=== PATIENT | female | born 1960 | race Caucasian/White ===

== ENCOUNTER 2018-12-17 10:05 | Emergency (ER) | payer BC, SELFPAY ==
[2018-12-17 10:22] VITALS: BP 123/58; PULSE 66; RESP 18; TEMP 36.7; O2SAT 100
--- NOTE | 2018-12-17 10:48 | W.ED.GENAD ---
Discharge Plan Disposition Patient Disposition: HOME Condition: Improving Discharge Details Chief Complaint: RespSymp Clinical Impression: COPD exacerbation Primary Care Provider: Jocelyne Gandara ED Provider: Jose Martin Nelson Home Meds and New Rx's Prescriptions: New doxycycline hyclate 100 mg capsule 100 mg PO BID 10 Days Qty: 20 RF: 0 Continued paroxetine HCl 20 MG tablet 20 mg PO DAILY RF: 0 Discharge Instructions Instructions: COPD (Chronic Obstructive Pulmonary Disease) (ED) Additional Instructions: Avoid alcohol while taking doxycycline. Continue your regular medication. May use the provided albuterol inhaler 1 to 2 puffs every 4 hours as needed for wheeze or cough. Return or see regular doctor if you feel you need to use the inhaler more than every 4 hours. Follow-up with regular doctor if not improving in 5 to 7 days time. Medical Decision Making 58-year-old female presents from home with weeks of persistent cough, wheeze, noting that she has COPD and has run out of her rescue inhaler. She is well-appearing with normal vital signs, normal oxygenation. Given DuoNeb updraft, referred for chest x-ray. Influenza and rapid strep test negative. Chest x-ray without focal infiltrate. Patient improving with inhaled DuoNeb. Will order her an albuterol inhaler with spacer for home use. We will place her on a course of doxycycline for coverage of atypical microorganisms. She has not tolerated burst of prednisone in the past and therefore will withhold systemic steroids at this time. She understands homecare, as well as indications for return and follow-up. She stable and improved at this time. HPI General Mode of arrival: ambulatory. Date/Time Provider Initiated Documentation: 12/17/18 10:26. Limitations to Documentation: no limitations. Information obtained by: patient. History of Present Illness 58 year old F presents to the emergency department with the chief complaint of 2 to 3 weeks of persistent cough, described as moderate, Quality is described as dull, and is localized to the chest. Patient reports no radiation. Patient started experiencing this week(s) and it has been constant. No relieving factors improve symptom(s), No exacerbating factors reported . Patient notes cough and shortness of breath; denies chest pain and fever/chills. Patient did receive the following treatments prior to arrival, none Related Data Home Medications Medication Instructions Recorded Confirmed paroxetine HCl 20 mg PO DAILY tab-cap 05/21/14 12/17/18 doxycycline hyclate 100 mg PO BID 10 Days #20 cap 12/17/18 Previous Rx's Medication Instructions Recorded doxycycline hyclate 100 mg PO BID 10 Days #20 cap 12/17/18 Allergies Allergy/AdvReac Type Severity Reaction Status Date / Time codeine AdvReac NAUSEA/VOMI Unverified 12/17/18 10:25 TING General Stated Complaint: RespSymp UTE: 3 Review of Systems Review of Systems Narrative: Has run out of inhaler. Fever at home. No chest pain. Persistent cough. Positive sick contacts with both the public and her granddaughter. 6 systems reviewed and otherwise negative [facility] Medical History Depressed Gastric ulcer Surgical History Colonoscopy - IV Sedation EGD - IV Sedation Ligation of fallopian tube Family History Father Personal history of malignant neoplasm Lung Cancer Grandmother Personal history of malignant neoplasm Breast cancer Maternal Aunt Personal history of malignant neoplasm Breast Cancer Other Heart disease Prostate cancer Social History Smoking/Tobacco Use Status: Current every day Alcohol Intake: former Drug use: Never Do you feel safe at home: Yes Do you feel safe in your relationship?: Yes Exam Narrative Exam Narrative: GEN: awake, alert, oriented 3. Pleasant, well groomed, interactive. HEAD: Normocephalic, atraumatic ENT: Mucous membranes moist, oropharynx unremarkable, External ear exam unremarkable EYES: PERRL, EOMI NECK: Full ROM, no OZ, no menigismus CHEST/RESP: Nontender, cough noted, discrete end expiratory wheeze when coughing, otherwise clear CARDIOVASCULAR: RRR, no murmur, rub sivakumar. 2+ Rad pulse bilateral ABDOMEN: Soft, nontender, no mass. +Bowel sounds EXT: Full ROM, no edema, no rash Neuro: Grossly normal neurologic exam, conversant, interactive. Psych: Speech fluent, thoughts congruent, affect normal Course Vital Signs Vital signs: Vital Signs Temperature 36.7 C 12/17/18 10:22 Pulse 66 12/17/18 10:22 Respiratory Rate 18 12/17/18 10:22 Blood Pressure 123/58 L 12/17/18 10:22 Pulse Oximetry 100 12/17/18 10:22 Temperature 36.7 C 12/17/18 10:22 Temperature Source Skin 12/17/18 10:22 Pulse 66 12/17/18 10:22 Respiratory Rate 18 12/17/18 10:22 Respiratory Effort Non-Labored 12/17/18 10:25 Respiratory Depth Normal 12/17/18 10:25 Blood Pressure 123/58 L 12/17/18 10:22 Blood Pressure Position Supine 12/17/18 10:22 Pulse Oximetry 100 12/17/18 10:22 Oxygen Delivery Method Room Air 12/17/18 10:22 Oxygen Flow Rate 0 12/17/18 10:22 Lab/Test Results Lab/Test Results: 12/17/18 10:47 Tonsil - Not Specified Streptococcus Screen (AYDIN) - Pending 12/17/18 10:32 Nasopharynx Influenza Types A,B Antigen - Pending POC Strep Test-SAMMY(Rapid) Start: 12/17/18 10:46 Freq: .Rapid Strep Test Status: Active Protocol: Document 12/17/18 10:48 MJ (Rec: 12/17/18 10:48 MJ [id number]) Strep test-SAMMY(Rapid)-POC POC-Strep test-SAMMY (Rapid) Negative POC-Strep test-SAMMY (Rapid) Negative
--- NOTE | 2018-12-17 11:29 | DI.RAD_ITS ---
EXAM: XR CHEST 2V PA LATERAL INDICATION: cough, COPD COMPARISON: CHEST 2 VIEWS PA,LAT from 08/10/2015 TECHNIQUE: 2D digital imaging was performed. FINDINGS: The heart size is normal. The lungs are well inflated and clear. No infiltrate, effusion or pulmon karine edema is seen. Degenerative changes are seen in the mid thoracic spine. IMPRESSION: No acute abnormality.
[2018-12-17] MEDS: Albuterol HFA 8 GM 60 PUFF INH IH (11:36)
== END 2018-12-17 11:34 | disposition home or self-care (01) ==
PROVIDERS: Emergency Provider Emergency Medicine; PCP Family Medicine
DX: J44.1 Chronic obstructive pulmonary disease with (acute) exacerbation (principal); F17.210 Nicotine dependence, cigarettes, uncomplicated
CPT/HCPCS: 87449; 87880; 94640; 99284; 71046; 87081

== ENCOUNTER 2019-07-07 01:49 | Outpatient (CLI) | payer BC, SELFPAY ==
--- NOTE | 2019-07-07 06:15 | DI.NM_ITS ---
APPROVED REPORT Exam: Exercise Treadmill Patient Location: Out-Patient Room/Bed: Stress Nurse: Mckenzie Steele RN BMI: 23.04 Baseline Rhythm: Sinus Bradycardia Indications: SOB. Chest tightness. Medical History Medical History: Depression, Smoking Allergies: Codeine Cardiac Risk Factors: FHX of CAD, Smoking, COPD Pretest Chest Pain Characteristics: Exertional Chest pain Exercise History: Physically active Lung Sounds: Clear to auscultation Heart Sounds: Bradycardia Stress Test Details Test: Exercise stress testing was performed using a Rajiv protocol. Nuclear Acquisition: Rest Tc-99m/Stress Tc-99m 1 day Rest Isotope: Tc-99m Sestamibi. Dose: 10.6 Date: 07/07/2019 Injection Time: 0845 Stress Isotope: Tc-99m Sestamibi. Dose: 33.4 Date: 07/07/2019 Injection Time: 1010 HR Resting HR Supine: 50 bpm Max Heart Rate (APMHR): 161 bpm Resting HR Standin bpm Target HR (85% APMHR): 136 bpm Max HR Achieved: 156 bpm % of APMHR: 96 Recovery HR: 56 bpm HR response to stress: Normal HR response to stress BP Resting BP Supine: 118/70/ mmHg Resting BP Standin/68 mmHg Max BP: 138/62 mmHg Recovery BP: 122/60 mmHg BP response to stress: Normal blood pressure response to stress. ECG Resting ECG: Sinus Bradycardia Stress ECG: Sinus Tachycardia ST Change: Horizontal ST depression 1 mm II,III, AVF V6 Maximum ST Deviation: 1 mm Arrhythmia: None Recovery ECG: Sinus Bradycardia Recovery ST Change: No significant ST segment changes Recovery Arrhythmia: None Comment: Sts normalized immediately in recovery Clinical Reason for Termination: Dyspnea, Fatigue Stress Symptoms: General Fatigue Exercise duration: 8 min06 sec Highest Stage Reached: Stage 3: 3.4 mph at 14% grade. Exercise capacity: 10.16 METs Functional Capacity: Above average capacity Stress ECG Conclusion 1. Patient exercised on the Rajiv protocol and completed a workload of 10 METS. She did not experien ce symptoms suggestive of angina 2. Normal heart rate and blood pressure response to exercise. Patient achieved 96% of predicted hear t rate for age 3. Electrocardiographically consistent with myocardial ischemia with [address] depression in leads II, III, aVF and V6, which resolved immediately in recovery 4. There were no significant dysrhythmias Stress Test Summary STAGE Time (mins) Speed (mph) Grade (%) HR BP SYMPTOMS METS Supine 50 118/70 Standing 49 120/68 1 3 1.7 10 92 124/62 4.6 2 6 2.5 12 128 128/60 7 3 9 3.4 14 154 10.2 1 min recovery 119 138/62 3 min recovery 69 128/64 6 min recovery 56 122/60 MPI Conclusion Normal myocardial perfusion at rest and with exercise. There is no evidence of myocardial ischemia o r prior infarction. Calculated ejection fraction was 51% Radiologist Interpretation Radiologist agrees with Malt Roaster's Interpretation. Radiologist Interpretation by: Luciana Brown MD Interpretation Date/Time: 07/07/2019 14:07:57
[2019-07-07] MEDS: Normal Saline Flush 10 ML SYR IVP (11:23)
== END 2019-07-07 02:09 ==
PROVIDERS: PCP Family Medicine; Visit Provider Internal Medicine Cardiovascular Disease
DX: R06.02 Shortness of breath (principal); R07.89 Other chest pain; R06.09 Other forms of dyspnea; R53.83 Other fatigue; Z87.891 Personal history of nicotine dependence; Z82.49 Family history of ischemic heart disease and other diseases of the circulatory system
CPT/HCPCS: 78452; 93017

== ENCOUNTER 2021-09-27 11:00 | Outpatient (REF) | payer SELFPAY ==
--- NOTE | 2021-09-27 16:15 | PAPFT_PTH ---
PATIENT: Annika Beard LOC: [facility] U#:[id number] AGE/SX: 60/F ROOM: RE09/27/[address]: Jocelyne Gandara : 1960 BED: DIS: 09/27/2021 SPEC #: [id number] RECD: 09/28/21 13:08 STATUS: LOLA REQ #: [id number] YANNI: 09/27/21 16:[address]: Jocelyne Gandara DEPT: [facility] Cytology RECD BY: Sima Trotter Tissues: 1 - CX/ENDOCX FOR PAP SMEARS Procedures: PAP THIN PREP/UVM Screening HPV DNA PROBE Comments: [id number]
== END 2021-09-27 11:01 | disposition home or self-care (01) ==
LOC: NCHCN 11:00
PROVIDERS: PCP Family Medicine; Visit Provider Family Medicine
DX: Z00.00 Encounter for general adult medical examination without abnormal findings (principal); Z12.4 Encounter for screening for malignant neoplasm of cervix
CPT/HCPCS: 88142; 87624

== ENCOUNTER → 2022-11-26 00:31 | Outpatient (CLI) | payer BC, SELFPAY ==
--- NOTE | 2022-11-26 | DI.RAD_ITS ---
Exam(s) XR FACIAL BONES LIMITED EXAM: XR FACIAL BONES LIMITED CLINICAL HISTORY: DISPLACEMENT OF TEMPOROMANDIBULAR JOINT, M26.69. TECHNIQUE: 2D digital imaging was performed. COMPARISON: No exams were available for comparison FINDINGS: Two views-sierra view and lateral view. No facial fractures identified and no fluid in the paranasal sinuses. No osseous lesions. Patient is edentulous. No lytic lesions seen in the mandible. Nasal bones intact. IMPRESSION: No acute osseous findings on these two views of the facial bones. Also no skull lesions identified DATA REPOSITORY: RADIATION DOSE DELIVERED:
== END ==
PROVIDERS: PCP Family Medicine; Visit Provider Family Medicine
DX: M26.69 Other specified disorders of temporomandibular joint (principal)
CPT/HCPCS: 70140

== ENCOUNTER 2022-12-25 14:26 | Outpatient (CLI) | payer BC, SELFPAY ==
[2022-12-25 12:49] LABS: HCT 42.9 % (36.0-46.0); MCH 28.4 pg (27.0-33.0); MCHC 32.6 % (32.0-36.0); MCV 87 fL (80-95); MPV 10.1 fL (8.0-11.0); Platelet Count 226 10^3/uL (130-400); RBC 4.93 10^6/uL (3.93-5.22); RDW 13.3 % (11.7-14.6); RDW-SD 42.7 fL; WBC 5.91 10^3/uL (4.4-10.8)
[2022-12-25 13:08] LABS: ALT 17 U/L (14-59); AST 14 U/L (15-37); Albumin 4.2 g/dL (3.4-5.0); Alkaline Phosphatase 90 U/L (46-116); Anion Gap 8.5 mmol/L (3-11); BUN 8 mg/dL (7-18); Bilirubin, Total 0.5 mg/dL (0.2-1.0); CO2 27.5 mmol/L (21.0-32.0); CREATININE 0.8 mg/dL (0.55-1.02); Calcium 9.8 mg/dL (8.5-10.1); Calculated LDL 173 mg/dL (<100); Chloride 106 mmol/L (98-107); Cholesterol 243 mg/dL (<200); Estimated GFR 82.74 (mL/min/1.73m2); Glucose 91 mg/dL (74-106); HDL Cholesterol 56 mg/dL (40-60); Potassium 4.6 mmol/L (3.5-5.1); Sodium 142 mmol/L (136-145); Total Protein 7.4 g/dL (6.4-8.2); Triglyceride 70 mg/dL (<150)
[2022-12-25 13:40] LABS: Vitamin D 25 Total 22.1 ng/mL (30-100)
== END 2022-12-25 14:27 | disposition home or self-care (01) ==
LOC: LOS 14:27
PROVIDERS: PCP Family Medicine; Visit Provider Family Medicine
DX: Z00.00 Encounter for general adult medical examination without abnormal findings (principal)
CPT/HCPCS: 36415; 80053; 80061; 82306; 85027

== ENCOUNTER 2024-11-24 10:11 | Outpatient (REF) | payer MEDICARE, SELFPAY ==
[2024-11-24 15:17] LABS: HCT 40.5 % (36.0-46.0); HGB 13.4 g/dL (11.2-15.7); MCH 28.1 pg (27.0-33.0); MCHC 33.1 % (32.0-36.0); MCV 85 fL (80-95); MPV 10.2 fL (8.0-11.0); Platelet Count 227 10^3/uL (130-400); RBC 4.77 10^6/uL (3.93-5.22); RDW 13.6 % (11.7-14.6); RDW-SD 42.5 fL; WBC 5.48 10^3/uL (4.4-10.8)
[2024-11-24 18:02] LABS: Hemoglobin A1C 5.3 % (<5.7)
[2024-11-24 18:11] LABS: ALT 21 U/L (14-59); AST 11 U/L (15-37); Albumin 4.1 g/dL (3.4-5.0); Alkaline Phosphatase 91 U/L (46-116); Anion Gap 10.2 mmol/L (3-11); BUN 13 mg/dL (7-18); Bilirubin, Total 0.5 mg/dL (0.2-1.0); CO2 27.8 mmol/L (21.0-32.0); Calcium 9.6 mg/dL (8.5-10.1); Calculated LDL 199 mg/dL (<100); Chloride 103 mmol/L (98-107); Cholesterol 270 mg/dL (<200); Estimated GFR 70.95 (mL/min/1.73m2); Glucose 94 mg/dL (74-106); HDL Cholesterol 47 mg/dL (>or=50); Magnesium 2.3 mg/dL (1.8-2.4); Potassium 5.0 mmol/L (3.5-5.1); Sodium 141 mmol/L (136-145); TSH (W/Ref FT4) 1.65 uIU/mL (0.36-3.74); Total Protein 7.1 g/dL (6.4-8.2); Triglyceride 124 mg/dL (<150); Vitamin D 25 Total 28 ng/mL (30-100)
== END 2024-11-24 10:12 | disposition home or self-care (01) ==
LOC: NCHCN 10:11
PROVIDERS: PCP Family Medicine; Visit Provider Family Medicine
DX: E78.5 Hyperlipidemia, unspecified (principal); E55.9 Vitamin D deficiency, unspecified; Z13.1 Encounter for screening for diabetes mellitus
CPT/HCPCS: 80053; 80061; 82306; 85027; 83036; 83735; 84443

== ENCOUNTER 2024-11-26 01:51 | Outpatient (CLI) | payer MEDICARE, SELFPAY ==
--- NOTE | 2024-11-26 | DI.CTLCSR_ITS ---
Exam(s) CT CHEST LUNG CANCER SCREEN EXAM: CT CHEST LUNG CANCER SCREEN CLINICAL HISTORY: NICOTINE DEPENDENCE CIGARETTES F17.210 SCREENING LUNG CANCER TECHNIQUE: Imaging Protocol: Axial computed tomography images with coronal and sagittal reformatted images were created and reviewed. Low dose screening protocol. COMPARISON: CR CHEST 2 VIEWS PA,LAT from 08/10/2015 FINDINGS: Tracheobronchial tree: No bronchiectasis or mucus plugging. Mediastinum and Tamar: No dominant adenopathy or fluid collection. Pulmonary parenchyma: No consolidation or dominant measurable mass. No visible emphysematous changes. No significant interstitial changes. Lung Nodules: None. Pleura: No effusion. No pneumothorax. Heart: The heart is not dilated. No coronary artery calcifications are seen. No pericardial effusion. Aorta: Thoracic aorta non-dilated. Upper abdomen: Unremarkable. Bones: Unremarkable for age. Soft Tissues: Unremarkable. IMPRESSION: No suspicious pulmonary nodules. Lung RADS Cat 1 - Negative: No nodules and definitely benign nodules Lung-RADS 1.0 CATEGORIES: Category 0 - Prior chest CT exam(s) being located for comparison. Category 1 - Annual screening in 12 months. No nodules or definitely benign nodules. Category 2 - Annual screening in 12 months. Benign appearance. Nodules with low likelihood of becoming active cancer. Category 3 - 6-month follow-up. Probably benign. Short-term follow-up suggested. Nodules with low likelihood of becoming active cancer. Category 4A - 3-month follow-up and CT/PET if >8 mm in size. Suspicious finding. Findings which require additional testing. Category 4B - Findings which require additional testing and tissue sampling. Category 4X - Category 3 or 4 nodules with additional features or imaging findings that increases the suspicion of malignancy. Modifier S- Potentially clinically significant findings (non lung cancer) RADIATION DOSE DELIVERED: 21.23mGy.cm Total DLP DATA REPOSITORY: All CT scans at this facility are submitted to the National Radiology Data Registry (NRDR) Dose Index Registry (DIR) with the [employer] ([employer]). RADIATION OPTIMIZATION: All CT scans at this facility use at least one of these dose optimization techniques: automated exposure control; mA and/or kV adjustment per patient size (includes targeted exams where dose is matched to clinical indication); or iterative reconstruction.
--- NOTE | 2024-11-26 | DI.MAMMO_ITS ---
Exam(s) MAMMO SCREENING EXAM: MAMMO SCREENING CLINICAL HISTORY: SCREENING MAMMO Z12.31 TECHNIQUE: Mammograms were interpreted according to the usual protocol including computer analysis with CAD system, tomosynthesis and C-view imaging. COMPARISON: Screening Bilat Mammo from 06/15/2013 FINDINGS: The breasts are composed of scattered fibroglandular densities, Breast Density category B. No suspicious masses or suspicious microcalcifications are seen. No skin thickening or abnormal axillary lymph nodes are seen. There has been no significant change from prior exams. IMPRESSION: BI-RADS Category 1, Negative mammogram Yearly screening mammography is recommended. Breast Density - Category B - There are scattered areas of fibroglandular density. Breast density Category C or D implies that the patient has dense breast tissue. Dense breast tissue can make it harder to find cancer on a mammogram. Dense breast tissue is also associated with an increased risk of breast cancer. This information about the result of the mammogram report was provided to the patient to raise their awareness. Use this report when you speak with the patient about their risks for breast cancer, which includes their family history. At that time, you may recommend additional screening tests (Ultrasound or MRI) as these tests may add significant information. A negative radiographic report should not delay biopsy if a dominant or clinically suspicious mass is present. Up to ten percent of cancers are not identified on mammography. A negative report may reinforce clinical impression. Adenosis and dense breasts may obscure an underlying neoplasm. False positive reports average 6 to 10%. Patient will receive a letter notifying them of these results.
== END 2024-11-26 02:11 ==
LOC: DI 01:52
PROVIDERS: PCP Family Medicine; Visit Provider Family Medicine
DX: Z12.31 Encounter for screening mammogram for malignant neoplasm of breast (principal); Z12.2 Encounter for screening for malignant neoplasm of respiratory organs; F17.210 Nicotine dependence, cigarettes, uncomplicated
CPT/HCPCS: 71271; 77063; 77067